=== PATIENT | female | born 1995 ===

== ENCOUNTER 2017-03-26 19:37 | Emergency (ER) | payer OTHER ==
[2017-03-26 20:08] VITALS: BP 118/63; PULSE 79; RESP 17; TEMP 98.7; O2SAT 99
--- NOTE | 2017-03-26 21:00 | ED PDOC ---
HPI: Female Pain Time Seen by Provider: 03/26/17 20:13 Chief Complaint (Nursing): Female Genitourinary Chief Complaint (Provider): dysuria History Per: Patient History/Exam Limitations: no limitations Onset/Duration Of Symptoms: Days (x2 days) Current Symptoms Are (Timing): Still Present Additional Complaint(s): 21 y/o female presents to the emergency department with a complaint of dysuria and nausea x2 days. No associated back pain or abdominal pain. Patient denies vomiting. She states that she is currently sexually active with 1 partner and she denies any concern for STD. Past Medical History Reviewed: Historical Data, Nursing Documentation, Vital Signs Vital Signs: Last Vital Signs Temp 98.7 F 03/26/17 20:06 Pulse 79 03/26/17 20:06 Resp 17 03/26/17 20:06 BP 118/63 03/26/17 20:06 Pulse Ox 99 03/26/17 20:06 - Medical History PMH: No Chronic Diseases - Surgical History Surgical History: No Surg Hx - Family History Family History: States: No Known Family Hx - Living Arrangements Living Arrangements: With Family - Social History Current smoker - smoking cessation education provided: No Ex-Smoker (has not smoked in the last 12 months): No Alcohol: None Drugs: Denies - Home Medications Home Medications: Ambulatory Orders Medication Instructions Recorded Nitrofurantoin Macrocrystals 100 mg PO BID #14 cap 03/26/17 [Macrobid] Phenazopyridine HCl [Pyridium] 200 mg PO TID PRN #6 tablet 03/26/17 - Allergies Allergies/Adverse Reactions: Allergies Allergy/AdvReac Type Severity Reaction Status Date / Time No Known Allergies Allergy Verified 03/26/17 20:07 Review of Systems ROS Statement: Except As Marked, All Systems Reviewed And Found Negative Constitutional: Negative for: Fever, Chills Gastrointestinal: Positive for: Nausea. Negative for: Vomiting, Abdominal Pain Genitourinary Female: Positive for: Dysuria, Frequency. Negative for: Incontinence, Hematuria, Vaginal Discharge, Vaginal Bleeding, Pelvic Pain Physical Exam - Reviewed Nursing Documentation Reviewed: Yes Vital Signs Reviewed: Yes - Physical Exam Appears: Positive for: Well, Non-toxic, No Acute Distress Head Exam: Positive for: ATRAUMATIC, NORMAL INSPECTION, NORMOCEPHALIC Skin: Positive for: Normal Color, Warm, Dry Eye Exam: Positive for: Normal appearance. Negative for: Conjunctival injection Cardiovascular/Chest: Positive for: Regular Rate, Rhythm. Negative for: Murmur Respiratory: Positive for: Normal Breath Sounds. Negative for: Accessory Muscle Use, Respiratory Distress Gastrointestinal/Abdominal: Positive for: Normal Exam, Soft. Negative for: Tenderness, Distended, Guarding, Rebound Back: Negative for: L CVA Tenderness, R CVA Tenderness Neurologic/Psych: Positive for: Alert, Oriented - Laboratory Results Urine POC: Negative Urine dip results: Positive for: Leukocyte Esterase, Blood - ECG O2 Sat by Pulse Oximetry: 99 (RA) Pulse Ox Interpretation: Normal Medical Decision Making Medical Decision Making: Time: 20:13 Initial Impression: 21 y/o with urinary tract infection symptoms Initial Plan: --Urine Dip --Urine --Macrobid 100 mg PO --Pyridium 200 mg PO --Urine Culture Stat --Revaluation Time: 20:58 Upon provider reevaluation patient is medically stable, and requires no further treatment in the ED at this time. Patient will be discharged home with Rx for Macrobid 100 mg and Pyridium 200 mg. Counseling was provided and all questions were answered regarding diagnosis and need for follow up. There is agreement to discharge plan. Return if symptoms persist or worsen. Clinical Impression: Urinary Tract Infection Scribe Attestation: Documented by Donny Campbell acting as a scribe for Mary Winn PA-C. Provider Scribe Attestation: All medical record entries made by the Scribe were at my direction and personally dictated by me. I have reviewed the chart and agree that the record accurately reflects my personal performance of the history, physical exam, medical decision making, and the department course for this patient. I have also personally directed, reviewed, and agree with the discharge instructions and disposition. Disposition - Clinical Impression Clinical Impression: Urinary tract infection - Patient ED Disposition Is Patient to be Admitted: No Counseled Patient/Family Regarding: Studies Performed, Diagnosis, Need For Followup, Rx Given - Disposition Referrals: [facility] [Outside] Disposition: Routine/Home Disposition Time: 20:59 Condition: STABLE Additional Instructions: Take prescription meds as directed. Drink plenty of fluids. Follow up with primary care doctor or clinic in 2-3 days. Prescriptions: Nitrofurantoin Macrocrystals [Macrobid] 100 mg PO BID #14 cap Phenazopyridine HCl [Pyridium] 200 mg PO TID PRN #6 tablet PRN Reason: Bladder Spasm Instructions: Urinary Tract Infection in Women (ED)
== END 2017-03-26 21:45 | disposition home or self-care (01) ==
LOC: H.ER 19:37
DX: N39.0 Urinary tract infection, site not specified (principal); Z87.891 Personal history of nicotine dependence

== ENCOUNTER 2018-01-27 13:01 | Emergency (ER) | payer MEDICAID, OTHER ==
[2018-01-27 13:23] VITALS: RESP 16; TEMP 98.4
[2018-01-27] MEDS ORDERED: Sodium Chloride 0.9% 1,000 ML IV STA (14:22)
[2018-01-27 15:14] LABS: BASO % 0.9 % (0.0-2.0); EOS % 0.8 % (0.0-4.0); HEMOGLOBIN 9.9 g/dL (12.0-16.0); LYMPH # 0.9 K/uL (1.0-4.3); LYMPH % 25.6 % (20.0-40.0); MEAN CELL VOLUME 73.1 fl (81.0-99.0); MEAN CORPUSCULAR HEMOGLOBIN 23.9 pg (27.0-31.0); MEAN CORPUSCULAR HGB CONC 32.7 g/dL (33.0-37.0); MEAN PLATELET VOLUME 8.3 fl (7.2-11.7); MONO # 0.3 K/uL (0.0-0.8); NEUT # 2.3 K/uL (1.8-7.0); NEUT % 63.7 % (50.0-75.0); NRBC % 0.1 % (0.0-0.0); RBC 4.16 Mil/uL (3.80-5.20); RED CELL DISTRIBUTION WIDTH 16.1 % (11.5-14.5); WHITE BLOOD COUNT 3.6 K/uL (4.8-10.8)
--- NOTE | 2018-01-27 15:15 | ED PDOC ---
HPI: Headache Time Seen by Provider: 01/27/18 13:32 Chief Complaint (Nursing): Headache Chief Complaint (Provider): Headache History Per: Patient History/Exam Limitations: no limitations Onset/Duration Of Symptoms: Hrs (this morning) Current Symptoms Are (Timing): Still Present Preceeding Symptoms: None Additional Complaint(s): Viv Berg is a 22 year old female, with a past medical history of absence seizures(Petit mal), who presents to the emergency department complaining of constant headache associated with nausea onset since this morning. Patient states she woke up with the headache, localized on top of her head. Not a thunderclap headache. Patient states she will get headache every time before having a seizure. She is currently taking Lamotrigine for her seizure disorder and has been compliant with her medication. Patient reports she gets a headache x2 per month and absence seizures every x2 months. She did not have a seizure today or yesterday. She denies any vomiting or diarrhea. No further medical complaints. PMD: None provided. Past Medical History Reviewed: Historical Data, Nursing Documentation, Vital Signs Vital Signs: Last Vital Signs Temp 98.4 F 01/27/18 13:19 Pulse 113 H 01/27/18 13:19 Resp 16 01/27/18 13:19 BP 120/81 01/27/18 13:19 Pulse Ox 95 01/27/18 13:19 - Medical History PMH: Seizures (absence) - Surgical History Surgical History: No Surg Hx - Family History Family History: States: Unknown Family Hx - Social History Current smoker - smoking cessation education provided: No Alcohol: None Drugs: Denies - Home Medications Home Medications: Ambulatory Orders Medication Instructions Recorded Nitrofurantoin Macrocrystals 100 mg PO BID #14 cap 03/26/17 [Macrobid] Phenazopyridine HCl [Pyridium] 200 mg PO TID PRN #6 tablet 03/26/17 Metronidazole [Metrogel-Vaginal] 1 ea VG QPM #5 gel 05/29/17 Naproxen [Naprosyn] 500 mg PO Q12H #20 tab 08/22/17 Ondansetron [Zofran] 4 mg PO Q8H #10 tab 08/22/17 Naproxen [Naprosyn] 1 tab PO BID PRN #30 tab 01/27/18 Prochlorperazine [Compazine] 10 mg PO Q6 PRN #20 tab 01/27/18 - Allergies Allergies/Adverse Reactions: Allergies Allergy/AdvReac Type Severity Reaction Status Date / Time No Known Allergies Allergy Verified 05/29/17 19:47 Review of Systems ROS Statement: Except As Marked, All Systems Reviewed And Found Negative Gastrointestinal: Positive for: Nausea. Negative for: Vomiting, Diarrhea Neurological: Positive for: Headache Physical Exam - Reviewed Nursing Documentation Reviewed: Yes Vital Signs Reviewed: Yes - Physical Exam Appears: Positive for: Well, Non-toxic, No Acute Distress Head Exam: Positive for: ATRAUMATIC, NORMAL INSPECTION, NORMOCEPHALIC Skin: Positive for: Normal Color, Warm, Dry Eye Exam: Positive for: Normal appearance, EOMI, PERRL Neck: Positive for: Painless ROM, Supple Cardiovascular/Chest: Positive for: Regular Rate, Rhythm. Negative for: Murmur Respiratory: Positive for: Normal Breath Sounds. Negative for: Respiratory Distress Gastrointestinal/Abdominal: Positive for: Normal Exam, Soft. Negative for: Tenderness Back: Positive for: Normal Inspection. Negative for: L CVA Tenderness, R CVA Tenderness, Vertebral Tenderness Extremity: Positive for: Normal ROM (upper and lower extremities). Negative for : Tenderness, Deformity, Swelling Neurologic/Psych: Positive for: Alert, Oriented (x3), Gait (steady). Negative for: Motor/Sensory Deficits, Aphasia, Facial Droop - Laboratory Results Result Diagrams: 01/27/18 15:00 01/27/18 15:00 - ECG O2 Sat by Pulse Oximetry: 95 (RA) Pulse Ox Interpretation: Normal Medical Decision Making Medical Decision Making: Initial Impression: Headache. Differential includes: migraines, prodromal headache, seizure Initial Plan: --Head w/o contrast [CT] --BMP --Magnesium --Urine dipstick --Urine --CBC w/ differential --Toradol 30 mg IVP --Sodium Chloride 1,000 ml IV 1,000 mls/hr --Compazine 10 mg IVP --Reevaluation Scribe Attestation: Documented by Titus Riojas, acting as a scribe for Jessica Kingsley MD Provider Scribe Attestation: All medical record entries made by the Scribe were at my direction and personally dictated by me. I have reviewed the chart and agree that the record accurately reflects my personal performance of the history, physical exam, medical decision making, and the department course for this patient. I have also personally directed, reviewed, and agree with the discharge instructions and disposition. Disposition - Clinical Impression Clinical Impression: Headache, Anemia - Patient ED Disposition Is Patient to be Admitted: Transfer of Care Counseled Patient/Family Regarding: Studies Performed, Diagnosis - Disposition Disposition: Transfer of Care Disposition Time: 15:00 Condition: STABLE Additional Instructions: FOLLOW UP WITH YOUR PRIMARY CARE DOCTOR ABOUT YOUR ANEMIA AND WITH DR HANDLEY ABOUT YOUR HEADACHE. PLEASE FOLLOW UP WITHIN A WEEK. DRINK PLENTY OF HYDRATING FLUID AND REST CONTINUE ALL YOUR MEDICATIONS PRESCRIBED Prescriptions: Naproxen [Naprosyn] 1 tab PO BID PRN #30 tab PRN Reason: Headache Prochlorperazine [Compazine] 10 mg PO Q6 PRN #20 tab PRN Reason: Nausea Instructions: Anemia Caused by Low Iron, Headache, Adult (DC)
[2018-01-27 15:29] LABS: BLOOD UREA NITROGEN 7 mg/dl (7-17); CALCIUM 9.1 mg/dL (8.4-10.2); GFR AFRICAN-AMERICAN > 60; GFR NON-AFRICAN AMERICAN > 60
--- NOTE | 2018-01-27 15:30 | CT ---
PROCEDURE: CT HEAD WITHOUT CONTRAST. HISTORY: Nausea, headache COMPARISON: 08/22/2017 TECHNIQUE: Axial computed tomography images were obtained through the head/brain without intravenous contrast. Coronal and sagittal reconstructed images. Radiation dose: Total exam DLP = 761.47 mGy-cm. This CT exam was performed using one or more of the following dose reduction techniques: Automated exposure control, adjustment of the mA and/or kV according to patient size, and/or use of iterative reconstruction technique. FINDINGS: HEMORRHAGE: No intracranial hemorrhage. BRAIN: No mass effect or edema. No atrophy or chronic microvascular ischemic changes. VENTRICLES: Unremarkable. No hydrocephalus. CALVARIUM: Unremarkable. PARANASAL SINUSES: Unremarkable as visualized. No significant inflammatory changes. MASTOID AIR CELLS: Unremarkable as visualized. No inflammatory changes. OTHER FINDINGS: None. IMPRESSION: No radiographic findings to suggest acute or significant cardiovascular disease. No significant interval change compared to the prior examination(s).
--- NOTE | 2018-01-27 17:28 | ED PDOC ---
- Laboratory Results Result Diagrams: 01/27/18 15:00 01/27/18 15:00 - ECG O2 Sat by Pulse Oximetry: 95 (RA) Pulse Ox Interpretation: Normal - Progress ED Course And Treament: 3p Rec'd endorsement from Dr Kingsley. Pt with headache. Pending ER workup reassessment and final ER disposition. 445p CT head no acute findings. Labs demonstrate anemia. No emergently significant lab abnormalities. On reeval pt feeling better. DW pt findings and plan of care. STable for dc with outpatient follow up. Disposition - Clinical Impression Clinical Impression: Headache, Anemia - POA Present On Arrival: None - Disposition Disposition: Routine/Home Disposition Time: 17:25 Condition: STABLE Additional Instructions: FOLLOW UP WITH YOUR PRIMARY CARE DOCTOR ABOUT YOUR ANEMIA AND WITH DR HANDLEY ABOUT YOUR HEADACHE. PLEASE FOLLOW UP WITHIN A WEEK. DRINK PLENTY OF HYDRATING FLUID AND REST CONTINUE ALL YOUR MEDICATIONS PRESCRIBED Prescriptions: Naproxen [Naprosyn] 1 tab PO BID PRN #30 tab PRN Reason: Headache Prochlorperazine [Compazine] 10 mg PO Q6 PRN #20 tab PRN Reason: Nausea Instructions: Anemia Caused by Low Iron, Headache, Adult (DC)
[2018-01-27 17:37] VITALS: BP 108/74; PULSE 75
[2018-01-28 23:08] VITALS: O2SAT 95
== END 2018-01-27 18:08 | disposition home or self-care (01) ==
LOC: H.ER 13:01
DX: R51 Headache (principal); D64.9 Anemia, unspecified; Z86.69 Personal history of other diseases of the nervous system and sense organs
CPT/HCPCS: 70450; 80048; 81025; 83735; 85025; 96374; 99284; J1885; J7040